=== PATIENT | female | born 1970 | race Hispanic/Latino ===

== ENCOUNTER 2024-02-12 20:42 | Emergency (ER) | payer OTHER ==
[~2024-02-12] VITALS: Ht 170.2 cm; Wt 77.0 kg
[2024-02-12 21:40] LABS: BASOPHILS 0.2 % (0-2); HEMATOCRIT 41.5 % (35.0-50.0); HEMOGLOBIN 14.4 g/dL (12.0-18.0); LYMPHOCYTES 10.2 % (24-44); MCH 31.4 (27-36); MCHC 34.6 g/dl (30-36); MCV 90.6 fl (81-99); MONOCYTES 7.8 % (0-12); NEUTROPHILS 80.8 % (39-80); PLATELET COUNT 282 K/uL (140-440); RBC 4.58 M/ul (4.3-5.7); RDW 13.5 (10.5-15.0)
[2024-02-12] MEDS ORDERED: diphenhydrAMINE HCL 50 MG/ML VIAL IV ONE (21:45)
[2024-02-12] MEDS ORDERED: DEXAMETHASONE SOD PHOS 10 MG/ML VIAL IV ONE (21:45)
[2024-02-12 21:54] LABS: ALBUMIN 4.1 g/dL (3.4-5.0); ALBUMIN/GLOBULIN RATIO 1.28 (1.1-2.4); ANION GAP 14.5 (7-21); BILIRUBIN, TOTAL 0.3 ng/dL (0.2-1.0); BUN/CREATININE RATIO 21.68 (6.0-28.6); CALCIUM 8.7 mg/dL (8.5-10.1); CREATININE, SERUM 0.83 mg/dL (0.55-1.02); POTASSIUM 4.5 mmol/L (3.5-5.1); PROTEIN, TOTAL 7.3 g/dL (6.4-8.2)
[2024-02-12] MEDS ORDERED: DIPHENHYDRAMINE50 M1 PO (22:40)
[2024-02-12] MEDS ORDERED: hydrOXYzine pamoate 50 MG HOME.PACK PO ONE (23:15)
[2024-02-12 23:17] VITALS: BP 134/78
[2024-02-14 11:27] LABS: BILE ACIDS, TOTAL 9 umol/L (0-10)
== END 2024-02-12 23:18 | disposition home or self-care (01) ==
LOC: ED 20:42
PROVIDERS: Family Medicine
DX: L29.89 Other pruritus (principal); T50.905A Adverse effect of unspecified drugs, medicaments and biological substances, initial encounter
CPT/HCPCS: 36415; 80053; 82239; 84550; 85025; 96374; 96375; 99283-25; J1100; J1200